=== PATIENT | female | born 1940 | race Caucasian/White ===

== ENCOUNTER 2021-02-09 18:51 | Emergency (ER) | payer MEDICARE, OTHER ==
[~2021-02-09] VITALS: Ht 160 cm; Wt 77.2 kg
[~2021-02-09 18:51] MED LIST: FLUARIX QUADRIV1 INJ IM
[2021-02-09] MEDS ORDERED: AMITRIPTYLIN25 MG PO (20:03)
[2021-02-09] MEDS ORDERED: VENTOLIN HFA IN (20:03)
[2021-02-09] MEDS ORDERED: LEVOTHYROXIN125 MC1 PO (20:04)
[2021-02-09] MEDS ORDERED: OMEPRAZOLE10 MG PO (20:05)
[2021-02-09] MEDS ORDERED: CRESTOR20 MG PO (20:05)
[2021-02-09] MEDS ORDERED: METFORMIN500 M2 PO (20:06)
[2021-02-09] MEDS ORDERED: ESTRACE1 MG PO (20:07)
[2021-02-09] MEDS ORDERED: METOPROL TAR25 MG PO (20:08)
[2021-02-09] MEDS ORDERED: CLOBETASOL0.051 EX (20:08)
[2021-02-09] MEDS ORDERED: COZAAR25 MG PO (20:09)
[2021-02-09] MEDS ORDERED: ADULT ASPIRIN R81 MG PO (20:10)
[2021-02-09] MEDS ORDERED: VITAMIN D31000 UNI1 PO (20:10)
[2021-02-09] MEDS ORDERED: MULTI VIT PO (20:11)
[2021-02-09] MEDS ORDERED: CENTRUM SILVER1 TA1 PO (20:12)
[2021-02-09] MEDS ORDERED: VITAMIN B-121000 MCG PO (20:13)
[2021-02-09] MEDS ORDERED: CO Q-10400 MG PO (20:14)
[2021-02-09] MEDS ORDERED: MAGNESIUM OXID400 M1 PO (20:14)
[2021-02-09] MEDS ORDERED: VITAMIN C TR PO (20:15)
[2021-02-09] MEDS ORDERED: MSM1000 M1 PO (20:16)
[2021-02-09 20:40] VITALS: BP 146/72
== END 2021-02-09 20:43 | disposition home or self-care (01) ==
LOC: ED 18:51
DX: S00.83XA Contusion of other part of head, initial encounter (principal); S40.021A Contusion of right upper arm, initial encounter; E11.9 Type 2 diabetes mellitus without complications; I10 Essential (primary) hypertension; W18.2XXA Fall in (into) shower or empty bathtub, initial encounter; Y93.E1 Activity, personal bathing and showering; Y92.002 Bathroom of unspecified non-institutional (private) residence as the place of occurrence of the external cause; Z79.84 Long term (current) use of oral hypoglycemic drugs